=== PATIENT | female | born 1950 | race Caucasian/White ===

== ENCOUNTER → 2016-06-28 | Outpatient (CLI) | payer BC ==
[~2016-06-28] MED LIST: ASPIRIN E.C. 8181 MG PO; BYETTA SQ; CELEBREX PO; CELEBREX50 MG PO; DOXYCYCLINE PO; GLIPIZIDE PO; HYDROCHLOROTHIA25 MG PO; LIPITOR 10MG10 MG PO; LISINOPRIL10 MG PO; NASONEX0.05 MG/AC NS; NEXIUM40 MG PO; OCUVITE PO; PHENTERMINE15 MG PO; SYNTHROID0.075 MG PO; ULTRAM 50MG TAB50 MG PO; VICTOZA6 MG/ML SC; VITAMIN D50000 I1 PO; [UNRECOGNIZED DRUG - OTHER] PO; [UNRECOGNIZED DRUG - OTHER] PO; ramipril PO
== END ==
LOC: MC.RAD 06-18 14:20
DX: Z12.31 Encounter for screening mammogram for malignant neoplasm of breast (principal); N64.89 Other specified disorders of breast

== ENCOUNTER → 2017-07-01 | Outpatient (CLI) | payer BC | LOC: MC.RAD 13:32 | DX: Z12.31 Encounter for screening mammogram for malignant neoplasm of breast (principal) ==

== ENCOUNTER → 2018-07-04 | Outpatient (CLI) | payer BC | LOC: MC.RAD 11:33 | DX: Z12.31 Encounter for screening mammogram for malignant neoplasm of breast (principal) ==

== ENCOUNTER 2019-12-02 11:00 | Outpatient (RCR) | payer BC | END 2020-02-01 | disposition home or self-care (01) | LOC: WSPT | DX: M54.5 Low back pain (principal) | CPT/HCPCS: G0283-GP ==

== ENCOUNTER → 2020-10-11 | Outpatient (CLI) | payer BC | LOC: MC.RAD 14:30 | DX: Z12.31 Encounter for screening mammogram for malignant neoplasm of breast (principal) ==

== ENCOUNTER 2021-04-20 11:15 | Outpatient (RCR) | payer BC | END 2021-04-24 | disposition home or self-care (01) | LOC: WSPT | DX: M17.0 Bilateral primary osteoarthritis of knee (principal) ==

== ENCOUNTER 2021-05-24 13:30 | Outpatient (RCR) | payer BC | END 2021-05-25 | disposition home or self-care (01) | LOC: WSPT | DX: M17.0 Bilateral primary osteoarthritis of knee (principal) ==

== ENCOUNTER 2021-06-23 12:45 | Outpatient (RCR) | payer BC | END 2021-06-24 | disposition home or self-care (01) | LOC: WSPT | DX: M17.0 Bilateral primary osteoarthritis of knee (principal) ==

== ENCOUNTER 2021-07-21 13:30 | Outpatient (RCR) | payer BC | END 2021-07-25 | disposition still patient (30) | LOC: WSPT | DX: M17.0 Bilateral primary osteoarthritis of knee (principal) ==

== ENCOUNTER 2021-08-04 11:15 | Outpatient (RCR) | payer BC | END 2021-08-24 | disposition still patient (30) | LOC: WSC | DX: M17.0 Bilateral primary osteoarthritis of knee (principal) ==

== ENCOUNTER → 2021-11-10 | Outpatient (CLI) | payer BC | LOC: MC.RAD 13:52 | DX: Z12.31 Encounter for screening mammogram for malignant neoplasm of breast (principal) ==

== ENCOUNTER 2022-06-22 15:45 | Outpatient (RCR) | payer BC | END 2022-06-24 | disposition home or self-care (01) | LOC: WSPT | DX: M54.12 Radiculopathy, cervical region (principal) | CPT/HCPCS: G0283-GP ==

== ENCOUNTER → 2023-01-22 | Outpatient (CLI) | payer BC | LOC: CANSCHCLI → MC.RAD 13:30 | DX: Z12.31 Encounter for screening mammogram for malignant neoplasm of breast (principal) ==